=== PATIENT | male | born 1985 | race Caucasian/White ===

== ENCOUNTER 2017-08-24 08:21 | Emergency (ER) | END 2017-08-24 15:23 | disposition left against medical advice (07) ==

== ENCOUNTER 2018-12-26 00:17 | Emergency (ER) | payer MEDICAID, OTHER ==
[~2018-12-26] VITALS: Ht 175.3 cm; Wt 79.0 kg
[~2018-12-26 00:17] MED LIST: CEPH-443 PO; CLIN300C10 PO; SULF1TAB31 PO
[2018-12-26 00:20] VITALS: BP 130/89; PULSE 81; RESP 19; Ht 175.3 cm; Wt 79.0 kg
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
== END 2018-12-26 02:17 ==
LOC: E/R 00:17
DX: S01.81XA Laceration without foreign body of other part of head, initial encounter (principal); S01.511A Laceration without foreign body of lip, initial encounter; X78.8XXA Intentional self-harm by other sharp object, initial encounter; Y92.9 Unspecified place or not applicable; Z02.89 Encounter for other administrative examinations; Z87.891 Personal history of nicotine dependence
CPT/HCPCS: 70450; 70486